=== PATIENT | male | born 1960 | race Caucasian/White ===

== ENCOUNTER 2020-11-04 10:02 | Emergency (ER) | payer MEDICARE ==
[~2020-11-04] VITALS: Ht 175.3 cm; Wt 83.9 kg
[~2020-11-04 10:02] MED LIST: AMLO5 PO; Colace100 MG PO; Flomax0.4 MG PO; TAMS.4ER PO
[2020-11-04] MEDS ORDERED: NEOPOLHCSU LEFTEAR (12:42)
[2020-12-27] MEDS ORDERED: MECL25 PO (15:45)
== END 2020-11-04 12:00 | disposition home or self-care (01) ==
LOC: ER 10:02
DX: H60.92 Unspecified otitis externa, left ear (principal); I10 Essential (primary) hypertension; F17.210 Nicotine dependence, cigarettes, uncomplicated; Z88.0 Allergy status to penicillin; Z79.899 Other long term (current) drug therapy
CPT/HCPCS: 99282; A9270

== ENCOUNTER 2020-11-11 21:29 | Emergency (ER) | payer MEDICARE ==
[~2020-11-11] VITALS: Ht 175.3 cm; Wt 86.2 kg
[~2020-11-11 21:29] MED LIST changes: +NEOPOLHCSU LEFTEAR
[2020-11-11 22:12] LABS: BASOPHILS ABSOLUTE AUTO 0.07 K/mm3 (0.00-0.23); BASOPHILS PERCENT AUTO 0 % (0-2); EOSINOPHILS ABSOLUTE AUTO 0.19 K/mm3 (0.00-0.68); EOSINOPHILS PERCENT AUTO 1 % (0-6); Hematocrit 44.9 % (37.0-53.0); Hemoglobin 15.7 g/dL (13.5-17.5); IMMATURE GRAN PERCENT AUTO 2 % (0-1); LYMPHOCYTES ABSOLUTE AUTO 2.35 K/mm3 (0.84-5.20); LYMPHOCYTES PERCENT AUTO 13 % (21-46); MONOCYTES ABSOLUTE AUTO 1.22 K/mm3 (0.16-1.47); MONOCYTES PERCENT AUTO 7 % (4-13); Mean Corpuscular HGB 30.2 pg (26.0-34.0); Mean Corpuscular Volume 86 fL (80-100); Mean Platelet Volume 8.3 fL (9.1-12.4); NEUTROPHILS ABSOLUTE AUTO 13.54 K/mm3 (1.96-9.15); NEUTROPHILS PERCENT AUTO 77 % (41-73); Platelet Count 485 K/mm3 (150-400); RDW Coefficient Variation 12.3 % (11.7-14.2); RDW Standard Deviation 38.9 fL (35.1-46.3); White Blood Cell Count 17.67 K/mm3 (4.00-11.30)
[2020-11-11 22:30] LABS: Alanine Aminotransfer (ALT/SGP 28 U/L (12-78); Albumin, Blood 3.2 g/dL (3.4-5.0); Albumin/Globulin Ratio 0.7 (0.8-1.8); Alk Phos 122 U/L (50-136); Anion Gap 10 mmol/L (6-16); Aspartate Aminotrans (AST/SGOT 23 U/L (12-37); Bilirubin, Total 0.5 mg/dL (0.1-1.0); Blood Urea Nitrogen 12 mg/dL (8-24); Bun/Creatinine Ratio 13.5 (12.0-20.0); CO2, Blood 21 mmol/L (21-32); Calcium, Blood 9.1 mg/dL (8.5-10.1); Chloride, Blood 110 mmol/L (98-108); Creatinine, Blood 0.89 mg/dL (0.60-1.20); Globulin, Blood 4.3 g/dL (2.2-4.0); Glomerular Filtration Rate >60 (60-); Glucose, Blood 179 mg/dL (70-99); Potassium, Blood 3.9 mmol/L (3.5-5.5); Sodium, Blood 141 mmol/L (136-145); Total Protein, Blood 7.5 g/dL (6.4-8.2)
[2020-11-12] MEDS ORDERED: CIPRODEX OTIC7.5 M1 LEFTEAR (00:11)
[2020-12-27] MEDS ORDERED: MECL25 PO (15:45)
== END 2020-11-12 00:17 | disposition home or self-care (01) ==
LOC: ER 21:29
PROVIDERS: Physician Assistant
DX: H60.92 Unspecified otitis externa, left ear (principal); I10 Essential (primary) hypertension; F17.200 Nicotine dependence, unspecified, uncomplicated; Z88.0 Allergy status to penicillin; Z79.899 Other long term (current) drug therapy
CPT/HCPCS: 80053; 83690; 85025; 99283; J1885; J2405

== ENCOUNTER 2020-11-30 10:29 | Emergency (ER) | payer MEDICARE ==
[~2020-11-30] VITALS: Ht 175.3 cm; Wt 86.2 kg
[~2020-11-30 10:29] MED LIST changes: +CIPRODEX OTIC7.5 M1 LEFTEAR
[2020-11-30] MEDS ORDERED: NEOPOLHCSU LEFTEAR (13:53)
[2020-12-27] MEDS ORDERED: MECL25 PO (15:45)
== END 2020-11-30 11:35 | disposition home or self-care (01) ==
LOC: ER 10:29
DX: H92.02 Otalgia, left ear (principal); I10 Essential (primary) hypertension; F17.200 Nicotine dependence, unspecified, uncomplicated; Z88.0 Allergy status to penicillin; Z79.899 Other long term (current) drug therapy
CPT/HCPCS: 99282; A9270

== ENCOUNTER 2020-12-29 16:12 | Emergency (ER) | payer MEDICARE, OTHER ==
[~2020-12-29] VITALS: Ht 172.7 cm; Wt 83.9 kg
[~2020-12-29 16:12] MED LIST changes: +MECL25 PO
[2020-12-29 16:35] LABS: BASOPHILS ABSOLUTE AUTO 0.04 K/mm3 (0.00-0.23); BASOPHILS PERCENT AUTO 0 % (0-2); EOSINOPHILS ABSOLUTE AUTO 0.05 K/mm3 (0.00-0.68); EOSINOPHILS PERCENT AUTO 0 % (0-6); Hemoglobin 17.6 g/dL (13.5-17.5); IMMATURE GRAN ABSOLUTE AUTO 0.12 K/mm3 (0.00-0.10); IMMATURE GRAN PERCENT AUTO 1 % (0-1); LYMPHOCYTES ABSOLUTE AUTO 2.12 K/mm3 (0.84-5.20); LYMPHOCYTES PERCENT AUTO 18 % (21-46); MONOCYTES ABSOLUTE AUTO 0.77 K/mm3 (0.16-1.47); MONOCYTES PERCENT AUTO 6 % (4-13); Mean Corpuscular HGB 30.1 pg (26.0-34.0); Mean Corpuscular HGB Conc 34.5 g/dL (31.5-36.5); Mean Corpuscular Volume 87 fL (80-100); Mean Platelet Volume 8.5 fL (9.1-12.4); NEUTROPHILS ABSOLUTE AUTO 9.01 K/mm3 (1.96-9.15); NEUTROPHILS PERCENT AUTO 74 % (41-73); Platelet Count 368 K/mm3 (150-400); RDW Standard Deviation 41.1 fL (35.1-46.3); Red Blood Cell Count 5.84 M/mm3 (4.30-5.90); White Blood Cell Count 12.11 K/mm3 (4.00-11.30)
[2020-12-29 16:55] LABS: Alanine Aminotransfer (ALT/SGP 56 U/L (12-78); Albumin, Blood 3.7 g/dL (3.4-5.0); Albumin/Globulin Ratio 0.9 (0.8-1.8); Alk Phos 128 U/L (50-136); Anion Gap 6 mmol/L (6-16); Aspartate Aminotrans (AST/SGOT 45 U/L (12-37); Bilirubin, Total 0.8 mg/dL (0.1-1.0); Blood Urea Nitrogen 11 mg/dL (8-24); Bun/Creatinine Ratio 11.3 (12.0-20.0); CO2, Blood 21 mmol/L (21-32); Calcium, Blood 9.4 mg/dL (8.5-10.1); Chloride, Blood 109 mmol/L (98-108); Creatinine, Blood 0.97 mg/dL (0.60-1.20); Globulin, Blood 4.1 g/dL (2.2-4.0); Glomerular Filtration Rate >60 (60-); Glucose, Blood 102 mg/dL (70-99); Potassium, Blood 3.6 mmol/L (3.5-5.5); Sodium, Blood 136 mmol/L (136-145); Total Protein, Blood 7.8 g/dL (6.4-8.2)
[2020-12-29] MEDS ORDERED: PSEU120ER PO (22:37)
== END 2020-12-29 22:43 | disposition home or self-care (01) ==
LOC: ER 16:12
PROVIDERS: Physician Assistant
DX: R42 Dizziness and giddiness (principal); M25.48 Effusion, other site; I10 Essential (primary) hypertension; F17.210 Nicotine dependence, cigarettes, uncomplicated; Z88.0 Allergy status to penicillin
CPT/HCPCS: 36415; 80053; 85025; 96374; 99283-25; A9270; J2765

== ENCOUNTER 2021-01-08 18:07 | Emergency (ER) | payer MEDICARE, OTHER ==
[~2021-01-08] VITALS: Ht 172.7 cm; Wt 83.9 kg
[~2021-01-08 18:07] MED LIST changes: +PSEU120ER PO
[2021-01-08 18:41] LABS: BASOPHILS ABSOLUTE AUTO 0.03 K/mm3 (0.00-0.23); BASOPHILS PERCENT AUTO 0 % (0-2); EOSINOPHILS ABSOLUTE AUTO 0.45 K/mm3 (0.00-0.68); EOSINOPHILS PERCENT AUTO 4 % (0-6); Hematocrit 47.5 % (37.0-53.0); Hemoglobin 16.3 g/dL (13.5-17.5); IMMATURE GRAN ABSOLUTE AUTO 0.12 K/mm3 (0.00-0.10); IMMATURE GRAN PERCENT AUTO 1 % (0-1); LYMPHOCYTES PERCENT AUTO 22 % (21-46); MONOCYTES ABSOLUTE AUTO 0.92 K/mm3 (0.16-1.47); MONOCYTES PERCENT AUTO 9 % (4-13); Mean Corpuscular HGB 30.1 pg (26.0-34.0); Mean Corpuscular HGB Conc 34.3 g/dL (31.5-36.5); Mean Corpuscular Volume 88 fL (80-100); Mean Platelet Volume 8.5 fL (9.1-12.4); NEUTROPHILS ABSOLUTE AUTO 6.48 K/mm3 (1.96-9.15); NEUTROPHILS PERCENT AUTO 63 % (41-73); Platelet Count 356 K/mm3 (150-400); RDW Coefficient Variation 12.7 % (11.7-14.2); RDW Standard Deviation 41.1 fL (35.1-46.3); Red Blood Cell Count 5.41 M/mm3 (4.30-5.90)
[2021-01-08 18:58] LABS: International Normalized Ratio 1.04; Prothrombin Time Results 11.2 Sec (9.7-11.5)
[2021-01-08 19:05] LABS: Alanine Aminotransfer (ALT/SGP 41 U/L (12-78); Albumin, Blood 3.5 g/dL (3.4-5.0); Albumin/Globulin Ratio 0.9 (0.8-1.8); Alk Phos 119 U/L (50-136); Anion Gap 6 mmol/L (6-16); Aspartate Aminotrans (AST/SGOT 32 U/L (12-37); Bilirubin, Total 0.5 mg/dL (0.1-1.0); Blood Urea Nitrogen 13 mg/dL (8-24); Bun/Creatinine Ratio 12.1 (12.0-20.0); CO2, Blood 21 mmol/L (21-32); Calcium, Blood 8.6 mg/dL (8.5-10.1); Chloride, Blood 113 mmol/L (98-108); Creatinine, Blood 1.07 mg/dL (0.60-1.20); Globulin, Blood 3.8 g/dL (2.2-4.0); Glomerular Filtration Rate >60 (60-); Glucose, Blood 129 mg/dL (70-99); Potassium, Blood 4.1 mmol/L (3.5-5.5); Sodium, Blood 140 mmol/L (136-145); Total Protein, Blood 7.3 g/dL (6.4-8.2); Troponin I <0.015 ng/mL (0.000-0.040)
[2021-01-08] MEDS ORDERED: MECL25 PO (20:10)
== END 2021-01-08 20:15 | disposition home or self-care (01) ==
LOC: ER 18:07
PROVIDERS: Emergency Medicine
DX: R42 Dizziness and giddiness (principal); I10 Essential (primary) hypertension; Z88.0 Allergy status to penicillin; Z87.891 Personal history of nicotine dependence
CPT/HCPCS: 36415; 71046; 80053; 83690; 84484; 85025; 85610; 93005; 93010; 99284-25

== ENCOUNTER 2024-10-22 09:45 | Emergency (ER) | payer MEDICARE, OTHER ==
[~2024-10-22] VITALS: Ht 172.7 cm; Wt 86.2 kg
[2024-10-22 10:32] VITALS: BP 140/96
[2024-10-22] MEDS ORDERED: PredniSONE 20 MG Tab PO ONE (10:35)
[2024-10-22] MEDS ORDERED: Ketorolac Tromethamine 30mg Vial IM ONE (10:35)
[2024-10-22] MEDS ORDERED: Colchicine 0.6 MG TAB PO ONE ×2 (10:35→11:40)
[2024-10-22] MEDS ORDERED: Prednisone20 MG PO (11:40)
[2024-10-22] MEDS ORDERED: Indomethacin50 MG PO (11:40)
== END 2024-10-22 12:07 | disposition home or self-care (01) ==
LOC: ER 09:45
DX: M10.9 Gout, unspecified (principal); I10 Essential (primary) hypertension
CPT/HCPCS: 96372; 99283; A9270; J1885; J7512

== ENCOUNTER 2025-06-16 09:40 | Emergency (ER) | payer MEDICARE ==
[~2025-06-16] VITALS: Ht 167.6 cm; Wt 86.2 kg
[~2025-06-16 09:40] MED LIST changes: +Indomethacin50 MG PO; +Prednisone20 MG PO
[2025-06-16 10:11] VITALS: BP 106/93
[2025-06-16] MEDS ORDERED: Ketorolac Tromethamine 15mg Vial IM ONE (10:20)
== END 2025-06-16 12:25 | disposition home or self-care (01) ==
LOC: ER 09:40
DX: M17.11 Unilateral primary osteoarthritis, right knee (principal); I10 Essential (primary) hypertension; Z88.0 Allergy status to penicillin; Z79.899 Other long term (current) drug therapy; F17.210 Nicotine dependence, cigarettes, uncomplicated; Z59.89 Other problems related to housing and economic circumstances
CPT/HCPCS: 73562-RT; 96372; 99283-25; A9270; J1885

== ENCOUNTER 2025-07-14 09:26 | Emergency (ER) | payer MEDICARE ==
[~2025-07-14] VITALS: Ht 175.3 cm; Wt 83.9 kg
[2025-07-14] MEDS ORDERED: Ketorolac Tromethamine 30mg Vial IM ONE (10:00)
[2025-07-14] MEDS ORDERED: IBUP600 PO (10:32)
[2025-07-14] MEDS ORDERED: COLCHICINE0.6 MG PO (10:32)
[2025-07-14] MEDS ORDERED: LOSARTAN-HCTZ1 EACH (10:41)
[2025-07-14 10:46] VITALS: BP 128/68
== END 2025-07-14 10:55 | disposition home or self-care (01) ==
LOC: ER 09:26
DX: M10.9 Gout, unspecified (principal); I10 Essential (primary) hypertension; F17.210 Nicotine dependence, cigarettes, uncomplicated; Z79.52 Long term (current) use of systemic steroids; Z79.899 Other long term (current) drug therapy; Z88.0 Allergy status to penicillin
CPT/HCPCS: 96372; 99283-25; J1885